=== PATIENT | male | born 1990 | race Caucasian/White ===

== ENCOUNTER 2020-03-14 13:14 | Emergency (ER) | payer SELFPAY ==
[~2020-03-14] VITALS: Ht 170.1 cm; Wt 113.6 kg
[~2020-03-14 13:14] MED LIST: NAPR-1070 PO
--- OUTSIDE RECORDS SUMMARY | 2020-03-14 13:19 | XMS REPORT ---
Author Author [place] [employer] installation and repair technician [employer] [facility] [employer] [facility] Address [address] [address] Care Team Providers Care Supervisor White Sugar Name Role Phone NO, LOCAL PHYSICIAN Unavailable Unavailable NEARINGMICKY Unavailable PCP, NONE Unavailable Unavailable Unavailable Unavailable Allergies The data below is from unstructured sourcesNo known allergies. No Known Allergies No Known Allergies Medications No Information Problems The data below is from unstructured sources Unknown Problems Procedures The data below is from unstructured sourcesNo known history of procedures. Immunizations The data below is from unstructured sourcesNo immunization records. No Known Immunizations No Known Immunizations Results Test Name Value Interpretation Reference Range Date Time Fa cility (Normalized) (Normalized) (Medline Reference) not yet categorized on 2019-06-30 Control Negative (no code) [facility] ([id number]) Exp date 12/28 (no code) [facility] ([id number]) Lot # [id number] (no code) [facility] ([id number]) not yet categorized on 2019-06-26 BLO Negative (no code) [facility] ([id number]) KET 07/2020~clear~ye (no code) [facility] llow~none~negati [facility] ve~negative~nega [facility] tive ([id number]) Lot # [id number] (no code) [facility] ([id number]) SG 1.020 (no code) [facility] ([id number]) URO 1.0 (no code) [facility] ([id number]) laboratory on 2019-06-26 pH (Bld) 7.0 [pH] (no code) 7.38 - 7.42 [pH] [facility] ([id number]) Protein (U) Negative (no code) 0 - 20 mg/dL [facility] [Mass/Vol] [facility] ([id number]) Vital Signs The data below is from unstructured sources Vital Response Date/Time Temperature (Fahrenheit) 97.2 degree s F (97.6 - 99.5) 04/07/2016 7:58am Temperature (Calculated Celsius) 36. 80486 degrees C (36.4 - 37.5) 04/07/2016 7:58am Pulse Rate (adult) 88 bpm (60 - 90) 04/07/2016 7:58am Respiratory Rate 18 bpm (12 - 24) 04/07/2016 7:58am O2 Sat by Pulse Oximetry 99 % (88 - 100) 04/07/2016 7:58am Blood Pressure 138/96 mm Hg 04/07/2016 7:58am Blood Pressure Mean 110 mm Hg 04/07/2016 7:58am Pain Numeric Pain Scale 8 7:58am Height (Feet) 5 feet 7:58am Height (Inches) 7 inches 04/07/2016 7:58am Height (Calculated Centimeters) 170. 795978 cm 04/07/2016 7:58am Weight (Pounds) 230 pounds 04/07/2016 7:58am Weight (Calculated Kilograms) 104.32 6246 kilograms 04/07/2016 7:58am Capillary Refill Capillary Refill Less Than 3 Seconds 04/07/2016 7:58am Height 5 ft 7 in Weight 230 lb Body Mass Index 36.0 kg/m^2 Blood pressure systolic 155 mmHg 2018-02-21 Blood pressure diastolic 96 mmHg 2018-02-21 Blood pressure systolic 155 mmHg 2018-02-21 Blood pressure diastolic 96 mmHg 2018-02-21 Interventions No Information Plan of Treatment The data below is from unstructured sources Discharge Date 04/07/16 8:37am Disposition 01 HOME, SELF-CARE Condition at Discharge Stable/Unchan ged Instructions/Education Provided Knee Effusion (ED) Prescriptions See Medication Section Referrals NO,LOCAL PHYSICIAN - [facility] Additional Instructions/Education Al l discharge instructions reviewed with patient and/or family. Voiced understanding. Elevate knee and ice when possible. Take NSAID as directed. Minimize squatting or repetitive knee movements If no improvement in 10 days to 2 weeks see orthopedics Activity Details Follow Up prn Reason:#16-te Activity Details Follow Up prn Reason:#16-te Goals No Information Social History No Information Functional Status The data below is from unstructured sourcesNo functional status results. Mental Status No Information Encounters Encounter Normalized Encounter Encounter Diagnosis Care Provi hema Organization Date Type 02-21-2018 Patient encounter no information no name no or ganization name 06-26-2019 Patient encounter no information no name no or ganization name procedure 06-26-2019 Patient encounter no information no name no or ganization name procedure Medical Equipment No Information Payers No Information Advance Directives Directive Response Recor ded Date/Time Advance Directives No 7:58am Organ Donor Yes 04/07/16 7:58am Resuscitation Status Full Code 04/07/16 7:58am Discharge Instructions No hospital discharge instructions. Additional Source Comments This clinical document has been generated using [employer] software that has been certified by the Office of the National Coordinator for Health Information Technology (ONC 15.99.04.3023.Diam.31.00.0.120327) and the National Committee for Chief Ii Dispatcher (NCQA, as an eMeasure certified technology). FOR RECORDS PERTAINING TO PATIENTS WHO ARE OR HAVE BEEN ENROLLED IN A CHEMICAL D EPENDENCY/SUBSTANCE ABUSE PROGRAM, SOME INFORMATION MAY BE OMITTED. This clinica l summary was aggregated from multiple sources. Caution should be exercised in using it in the provision of clinical care. This summary normalizes information from multiple sources, and as a consequence, information in this document may ma terially change the coding, format and clinical context of patient data. In deanna tion, data may be omitted in some cases. CLINICAL DECISIONS SHOULD BE BASED ON T HE PRIMARY CLINICAL RECORDS. [employer] provides no warranty or guara ntee of the accuracy or completeness of information in this document.The followi ng information is based on time limited clinical information UNRECOGNIZED CONTENT PROVIDED BELOW FOR UNRECOGNIZED SECTION REASON FOR VISIT becky/swelling
--- OUTSIDE RECORDS SUMMARY | 2020-03-14 13:19 | XMS REPORT | Continuity of Care Document ---
Author Organization Unknown Address Unknown Phone Unavailable Allergies Active Description Code Type Severity Reaction Onset Reported/Identified Relationship to Patient Clinical Status Yes No Known Drug Allergies [id number] Drug Allergy Unknown N/A 04/07/2016 Medications There is no data. Problems Date Dx Coded Attending Type Code Diagnosis Diagnosed By 12/03/2010 Ot V58.32 ENC OUNTER FOR REMOVAL OF SUTURES 04/07/2016 ESTELLE EDGAR MD Ot M25.561 PAIN IN RIGHT KNEE 04/07/2016 ESTELLE EDGAR MD Ot M70.51 OTHER BURSITIS OF KNEE, RIGHT KNEE 04/10/2016 ESTELLE EDGAR MD Ot M25.561 PAIN IN RIGHT KNEE 04/10/2016 ESTELLE EDGAR MD Ot M70.51 OTHER BURSITIS OF KNEE, RIGHT KNEE Procedures There is no data. Results There is no data. Encounters ACCT No. Visit Date/Time Discharge Status Pt. Type Provider Facility Loc./Unit Complaint [id number] 06/26/2019 11:55:00 06/26/2019 23:59: 59 [facility] Outpatient JAKUB WOOD [facility] [id number] 04/07/2016 07:56:00 016 08:37:00 DIS Emergency ESTELLE EDGAR MD [facility] ER [id number] 12/03/2010 12:20:00 Document Registration
--- OUTSIDE RECORDS SUMMARY | 2020-03-14 13:19 | XMS REPORT ---
Author Author Lupillo MCNALLY Organization [facility] Address Unknown Care Team Providers Care Leasing Property Manager Name Role Phone MICKY MCNALLY Unavailable PROBLEMS Unknown Problems ALLERGIES No Known Allergies ENCOUNTERS Encounter Location Date Diagnosis [facility] [address] [id number] [address] [place], [place] [id number] Feb, Dental examination Z01.20 IMMUNIZATIONS No Known Immunizations SOCIAL HISTORY Never Assessed REASON FOR VISIT becky/swelling PLAN OF CARE Activity Details Follow Up prn Reason:#16-te VITAL SIGNS Blood pressure systolic 155 mmHg 2018-02-21 Blood pressure diastolic 96 mmHg 2018-02-21 MEDICATIONS Medication Instructions Dosage Frequency Start Date End Date Duration S tatus Amoxicillin 500 mg Orally every 8 hrs 1 capsule 8h 07 days Active RESULTS No Results PROCEDURES Procedure Date Ordered Result Body Site LTD ORAL EVALUATION - PROBLEM FOCUS February 21, 2018 INTRAORL-PERIAPICAL 1 FILM [id number] February 21, 2018 PANORAMIC FILM SEE ALSO CODE [id number] February 21, 2018 INSTRUCTIONS MEDICATIONS ADMINISTERED No Known Medications
[2020-03-14] MEDS ORDERED: KETOROLAC 60 MG/2 ML VIAL IM ONE (13:45)
[2020-03-14] MEDS ORDERED: METH4TAB11 PO (14:06)
--- NOTE | 2020-03-14 14:06 | ED Lower Extremity ---
General Chief Complaint: Lower Extremity Stated Complaint: R KNEE PAIN Nursing Triage Note: AMB TO ROOM C/O R KNEE PAIN NO INJURY HAS PAIN IN THIS KNEE BEFORE WAS SEEN IN ED AND GIVEN A RX AN HELPED. R KNEE SWOLLEN. Nursing Sepsis Screen: No Definite Risk Source: patient Exam Limitations: no limitations History of Present Illness Date Seen by Provider: Mar 14, 2020 Time Seen by Provider: 13:30 Initial Comments Right knee swelling for 2 or 3 days. History of bursitis to this knee a few years ago. No fever no chills no known injury. He's been working a lot of 12 hour shifts at [employer] on his feet a lot. Onset: other Severity: moderate Pain/Injury Location: right knee Method of Injury: unknown (no known injury) Modifying Factors: Worse With Movement Allergies and Home Medications Allergies Coded Allergies: No Known Drug Allergies (Unverified , 04/07/16) Home Medications Naproxen Sodium 550 Mg Tablet, 550 MG PO BID Prescribed by: ESTELLE EDGAR on 04/07/16 0831 Patient Home Medication List Home Medication List Reviewed: Yes Review of Systems Constitutional: see HPI EENTM: see HPI Respiratory: no symptoms reported Cardiovascular: no symptoms reported Genitourinary: no symptoms reported Musculoskeletal: see HPI Skin: no symptoms reported Psychiatric/Neurological: No Symptoms Reported Past Bjgwaqk-Qqlryf-Eponlv Hx Patient Social History Alcohol Use: Denies Use Recreational Drug Use: No Smoking Status: Never a Smoker Recent Foreign Travel: No Contact w/Someone Who Travel: No Recent Infectious Disease Expo: No Recent Hopitalizations: No Seasonal Allergies Seasonal Allergies: No Physical Exam Vital Signs Vital Signs - First Documented 03/14/20 13:22 Temp 37.0 Pulse 82 Resp 18 B/P (MAP) 142/91 (108) Pulse Ox 98 O2 Delivery Room Air Capillary Refill : Less Than 3 Seconds Height, Weight, BMI Height: 5'7" Weight: 230lbs. oz. 104.055998mm; 39.00 BMI Method:Stated General Appearance: WD/WN, no apparent distress HEENT: PERRL/EOMI, normal ENT inspection Respiratory: no respiratory distress, no accessory muscle use Hips: bilateral hip non-tender, bilateral hip normal inspection, bilateral hip normal range of motion Legs: bilateral leg non-tender, bilateral leg normal inspection, bilateral leg normal range of motion Knees: right knee pain, right knee soft tissue tenderness, right knee swelling Ankles: bilateral ankle non-tender, bilateral ankle normal inspection, bilateral ankle normal range of motion Feet: bilateral foot non-tender, bilateral foot normal inspection, bilateral foot normal range of motion Neurologic/Psychiatric: alert, normal mood/affect, oriented x 3 Skin: normal color, warm/dry Procedures/Interventions Additional Procedures: Arthrocentesis Aspirating Progress Did offer him arthrocentesis of the right knee to remove some of the fluid and send it down for culture cell count and crystal analysis. An area 1 cm superior and 1 cm lateral to the superior and lateral border of the patella was identified and anesthetized with 0.5 mL of 1% lidocaine without epinephrine. Betadine was used to cleanse the area, this was allowed to dry, an 18-gauge 1- 1/2 inch needle was then inserted and about 10 mL of clear yellow fluid was aspirated. Progress/Results/Core Measures Results/Orders Lab Results Laboratory Tests Test 03/14/20 13:45 Range/Units My Orders Orders - MALINA HUTCHINS APRN Knee, Right, 3 Views (03/14/20 13:37) Crystals,Body Fluid (03/14/20 13:37) Body Fluid Culture (03/14/20 13:37) Ketorolac Injection (Toradol Injection) (03/14/20 13:45) Vital Signs/I&O 03/14/20 13:22 Temp 37.0 Pulse 82 Resp 18 B/P (MAP) 142/91 (108) Pulse Ox 98 O2 Delivery Room Air Blood Pressure Mean: 108 Departure Impression Primary Impression: Knee effusion, right Disposition: 01 HOME, SELF-CARE Condition: Stable Departure-Patient Inst. Decision time for Depature: 14:05 Referrals: NO,LOCAL PHYSICIAN (PCP/Family) Primary Care Physician Patient Instructions: Knee Pain Add. Discharge Instructions: 1. Follow-up with her regular doctors within the next 1 week to discuss sche duling an MRI to help evaluate the cause of the fluid on the knee joint. Steroids as directed. Return to ER for any fevers chills or other concerns. All discharge instructions reviewed with patient and/or family. Voiced understanding. Scripts Methylprednisolone (Methylprednisolone Dose Pack) 4 Mg Tablet 4 MG PO UD for 6 Days, #21 TAB FOLLOW DOSE PACK INSTRUCTIONS Prov: MALINA HUTCHINS APRN 03/14/20 MALINA HUTCHINS APRN Mar 14, 2020:06
--- NOTE | 2020-03-14 14:46 | Diagnostic Imaging Report ---
INDICATION: Right knee pain and swelling. EXAMINATION: Three views of the right knee were obtained. FINDINGS: No fracture, dislocation or other acute bony abnormality. Probably a joint effusion. IMPRESSION: Joint effusion. No bony abnormality is seen. Dictated by: Dictated on workstation # [id number]
[2020-03-14 15:32] VITALS: BP 136/97
[2020-03-14 16:15] LABS: BODY FLUID APPEARENCE MKD CLDY; BODY FLUID COLOR YELLOW; BODY FLUID SOURCE SYNOVIAL
[2020-03-14 16:16] LABS: BF OTHER CELLS 0 %; LYMPHOCYTES,BODY FLUID 4 %
[2020-03-14 16:40] LABS: BODY FLUID RBC COUNT 11000 /uL; BODY FLUID WBC TOTAL COUNT 40500 /uL
== END 2020-03-14 15:31 | disposition home or self-care (01) ==
LOC: EDUNIT# 13:14 → ER 13:15
DX: M25.461 Effusion, right knee (principal); M25.561 Pain in right knee
CPT/HCPCS: 73562; 87070; 87205; 89051; 89060